=== PATIENT | male | born 2000 | race Caucasian/White ===

== ENCOUNTER 2022-11-25 00:58 | Emergency (ER) | payer OTHER, SELFPAY ==
[2022-11-25 01:07] VITALS: BP 139/82; PULSE 92; RESP 16; TEMP 36.4; O2SAT 96
--- NOTE | 2022-11-25 01:08 | ED_ITS ---
HPI - Ear Problem General Chief complaint: Ear/Nose/Throat Problem Stated complaint: Left Ear Pain Time Seen by Provider: 11/25/22 01:00 History of Present Illness HPI Narrative: Patient is a 22-year-old gentleman up-to-date on his vaccinations who comes in today with pain in his left ear. Patient has been present the last several days. He has had no fevers no chills no night sweats he has otherwise been feeling well. He has minimal pharyngitis. His pain is moderate. He has taken [id number] medications with no affect. No other significant symptoms no recent travel no respiratory symptoms. Related Data Home Medications Medication Instructions Recorded Confirmed fexofenadine 60 mg tablet (Stephanie 60 mg PO BID 11/25/22 11/25/22 Allergy) Allergies Allergy/AdvReac Type Severity Reaction Status Date / Time No Known Drug Allergies Allergy Verified 11/25/22 01:06 Review of Systems Status of ROS: Reports: 6 or more systems reviewed and unremarkable except as noted in History and below Exam Narrative: Exam Narrative: EXAM GENERAL: Patient appears comfortable and well. EYES: No scleral icterus. ENT: Tympanic membrane normal on the right with dullness and erythema on the left. THYROID: no thyroid nodules or thyromegaly. LYMPH: No supraclavicular or cervical lymphadenopathy. SKIN: Visible skin seen during exam normal or with benign process only. EXT: No dependent lower extremity pedal edema. HEART: Regular rate and rhythm with no murmurs, rubs, or gallops. LUNGS: Clear to auscultation bilaterally with no crackles or wheezes. ABD: Soft, non tender, non distended. PSYCH: Good eye contact, speech is not pressured. Course Course Hospital Course: Patient seen examined. Medical Decision Making MDM Narrative Medical decision making narrative: Patient is a 22-year-old gentleman who comes in today with a two-day history of left-sided ear pain. He is obvious otitis media on inspection. No other findings on exam. Vital signs are stable. Patient will be treated with amoxicillin Tylenol Motrin rest and fluids. Differential Diagnosis Differential Diagnosis: Otitis media otitis externa sinusitis COVID-19 influenza dental infection Discharge Plan Discharge Clinical Impression: Otitis media Patient Disposition: Home, Self-Care Condition: Stable Instructions: Ear Infection (ED) Additional Instructions: Tylenol Motrin Rest Amoxicillin as directed Fluids Follow-up with primary care next week if not improved. Activity Level: No Restrictions Discharge Diet: Regular Prescriptions: No Action fexofenadine [Stephanie Allergy] 60 mg tablet 60 mg PO BID Stand Alone Forms: [facility] [employer] Info Instructions
== END 2022-11-25 01:20 | disposition home or self-care (01) ==
PROVIDERS: Emergency Provider Internal Medicine
DX: H66.92 Otitis media, unspecified, left ear (principal)
CPT/HCPCS: 99283